=== PATIENT | male | born 1950 | race Caucasian/White ===

== ENCOUNTER 2019-02-03 13:58 | Day surgery (SDC) | payer MEDICARE ==
[2019-01-31 10:33] LABS: BASOPHILS # (AUTO) 0.1 X10'3 (0-0.2); BASOPHILS % (AUTO) 1.2 % (0-1); EOSINOPHILS # (AUTO) 0.5 X10'3 (0-0.9); LYMPHOCYTES # (AUTO) 1.3 X10'3 (1.1-4.8); LYMPHOCYTES % (AUTO) 20.6 % (21-51); MEAN CORPUSCULAR HEMOGLOBIN 30.3 PG (27.0-31.0); MEAN CORPUSCULAR HGB CONC 34.2 g/dL (33.0-36.5); MEAN CORPUSCULAR VOLUME 88.9 FL (78-98); MEAN PLATELET VOLUME 7.5 FL (7.4-10.4); MONOCYTES # (AUTO) 0.5 X10'3 (0-0.9); MONOCYTES % (AUTO) 8.1 % (2-12); NEUTROPHILS % (AUTO) 62.1 % (42-75); PRE OP HEMATOCRIT 42.8 % (42.0-52.0); PRE OP HEMOGLOBIN 14.6 g/dL (14.0-17.9); PRE OP PLATELET COUNT 248 X10'3 (140-440); RED BLOOD COUNT 4.82 X10'6 (4.70-6.10); RED CELL DISTRIBUTION WIDTH 13.8 % (11.5-14.5)
[2019-01-31 10:53] LABS: ALBUMIN/GLOBULIN RATIO 1.3 (1.1-1.5); ALKALINE PHOSPHATASE 74 IU/L (46-116); BLOOD UREA NITROGEN 15 MG/DL (7-18); BUN/CREATININE RATIO 16.3 (5.4-32.0); CALCIUM 8.6 MG/DL (8.5-10.1); CHLORIDE 108 MMOL/L (99-107); CHOL/HDL RATIO 4.9 (0.00-4.99); CHOLESTEROL 206 MG/DL (0-200); CREATININE 0.92 MG/DL (0.60-1.10); HDL CHOLESTEROL 42 MG/DL (35-60); LDL CHOLESTEROL 145 MG/DL (50-100); PRE OP ALT 34 U/L (30-65); PRE OP ANION GAP 7 (8-16); PRE OP AST 20 U/L (10-37); PRE OP BILIRUB, TOTAL 0.9 MG/DL (0.0-1.0); PRE OP GLUCOSE 86 MG/DL (70-104); PRE OP SODIUM 142 MMOL/L (135-145); TOTAL CARBON DIOXIDE 27.2 MMOL/L (24-32); TOTAL PROTEIN 7.2 G/DL (6.4-8.2); TRIGLYCERIDES 110 MG/DL (20-135); eGFR 82 ML/MIN
[~2019-02-03] VITALS: Ht 185.4 cm; Wt 98.1 kg
[~2019-02-03 13:58] MED LIST: HYDR42CR3 TP; famotidine 20mg tablet PO ONE; ringers solution, lacted 1,000 ML IV SCH
[2019-02-03 14:34] VITALS: BP 135/77
[2019-02-03 14:38] VITALS: BP 135/77
[2019-02-03] MEDS ORDERED: epiNEPHrine 1 mg/ml inj ONE (15:24)
[2019-02-03] MEDS ORDERED: LIDOcaine 1% 30ml preserv. free vial ONE (15:25)
[2019-02-03] MEDS ORDERED: mupirocin 2% ointment 22GM ONE (15:31)
[2019-02-03] MEDS ORDERED: fentaNYL/PF 50MCG/1 ML 2ML syringe ONE (16:06)
[2019-02-03] MEDS ORDERED: midazolam 2 mg/2 ml injection ONE (16:06)
[2019-02-03] MEDS ORDERED: propofol 10mg/ml 20ml vial IV ONE (16:08)
[2019-02-03] MEDS ORDERED: ringers solution, lacted 1,000 ML IV SCH (16:53)
[2019-02-03] MEDS ORDERED: hydrALAZINE 20mg/ml inj. IV PRN (16:55)
[2019-02-03] MEDS ORDERED: morphine 4 MG/ML inj SYRINge IV PRN ×2 (16:55)
[2019-02-03] MEDS ORDERED: labetalol 20mg/4ml (5mg/ml) syringe IV PRN (16:55)
[2019-02-03] MEDS ORDERED: ondansetron/PF 4mg/2ml inj IV PRN (16:55)
[2019-02-03] MEDS ORDERED: fentaNYL/PF 50MCG/1 ML 2ML syringe IV PRN ×2 (16:55)
[2019-02-03 17:30] VITALS: BP 145/78
--- NOTE | 2019-02-03 17:30 | NUR ---
Received from OR via [facility] , accompanied by Anesthesiologist PARVEEN and report given by Anesthesiolgist. VSS. RIGHT INFERIOR CANTHUS STITCHES ARE CDI. VSS. DENIES PAIN. Addendum: 02/03/19 at 1744 by Alec Booker RN, RN Amended: Links added.
[2019-02-03 17:40] VITALS: BP 138/84
[2019-02-03 17:50] VITALS: BP 136/82
--- NOTE | 2019-02-03 18:00 | NUR ---
ALL DC CRITERIA HAS BEEN MET. IV TAKEN OUT WITHOUT COMPLICATIONS. ALL INSTRUCTIONS COVERED AND ALL QUESTIONS ANSWERED. DRESSINGS CDI. OUT VIA WHEELCHAIR TO PERSONAL VEHICLE WHERE PATIENT WAS SECURED IN AND DRIVEN HOME BY DR. ROY. Addendum: 02/03/19 at 1818 by Alec Booker RN, RN Amended: Links added.
== END 2019-02-03 18:00 | disposition home or self-care (01) ==
LOC: PAS 13:58
PROVIDERS: ATTEND Otolaryngology
DX: C44.319 Basal cell carcinoma of skin of other parts of face (principal); E11.9 Type 2 diabetes mellitus without complications; Z98.890 Other specified postprocedural states; Z79.899 Other long term (current) drug therapy
CPT/HCPCS: 14040; 36415; 80053; 80061; 82948; 85025; 93005; A6402; J0171; J2001; J2250; J2704; J3010; 88305; 88331; A4215; A4618; A7000; J7120